=== PATIENT | female | born 1965 | race Caucasian/White ===

== ENCOUNTER 2023-04-30 13:10 | Outpatient (AMB) | payer BC, SELFPAY ==
--- NOTE | 2023-04-30 13:18 | MHC.OFFVIS ---
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 female with past medical history of hypothyroidism, anxiety, depression, obesity is here today for pre colonoscopy screening.? Patient was sent to us by her PCP.? Patient reports to have postprandial abdominal bloating, occasional loose stools than diarrhea. Patient states that she occasionally will have epigastric discomfort with occasional acid reflux, dyspepsia without dysphagia or odynophagia. Patient denies any nausea or vomiting. Patient is not on any anticoagulation medication. No issues with anesthesia in the past. PFSH Surgical History Hx of carpal tunnel repair Social History Household Members: Family Alcohol intake: current Alcohol intake frequency: 0-2 drinks per day Patient Tobacco Use Status: Never used Tobacco Physical Exam Vital Signs: Last Vital Signs Pulse 74 04/30/23 13:27 BP 119/59 L 04/30/23 13:27 BMI result Body Mass Index 33.5 Assessment & Plan Assessment & Plan (1) Postprandial abdominal bloating: Code(s): R14.0 - Abdominal distension (gaseous) Plan: Patient reports postprandial abdominal bloating. Low FODMAP diet discussed with patient. Will send is patient to do lab work to rule out pancreatic insufficiency (2) Postprandial diarrhea: Code(s): K52.9 - Noninfective gastroenteritis and colitis, unspecified Plan: Postprandial loose stools. Patient will start taking Citrucel to have her bulk her stools. Will rule out malabsorption (3) IBS (irritable bowel syndrome): Code(s): K58.9 - Irritable bowel syndrome without diarrhea Qualifiers: Irritable bowel syndrome type: with both diarrhea and constipation Qualified Code(s): K58.2 - Mixed irritable bowel syndrome Plan: Patient most likely has IBS with both diarrhea and constipation. Patient will start taking Citrucel in the morning with full glass of water and take Senokot in the evening. Low FODMAP diet discussed with patient. List of food recommended as well as list of food to avoid given to patient. (4) GERD (gastroesophageal reflux disease): Code(s): K21.9 - Gastro-esophageal reflux disease without esophagitis Qualifiers: Esophagitis presence: esophagitis presence not specified Qualified Code(s): K21.9 - Gastro-esophageal reflux disease without esophagitis Plan: Patient can start lansoprazole in the morning and sucralfate at bedtime. Patient will be sent for upper endoscopy to rule out gastritis, soften tightness, Smith's, gastric or peptic ulcers. (5) Screen for colon cancer: Code(s): Z12.11 - Encounter for screening for malignant neoplasm of colon Plan: Patient denies any issues with anesthesia in the past. Not on any anticoagulation medication. Patient was instructed to stop taking Citrucel for 1 week before the procedure. The importance of good bowel prep discussed with patient. What to expect before during and after the procedure discussed with patient. The importance of clear liquid diet day before the procedure discussed with patient. I will see her after the procedure, sooner on as needed basis. Patient is agreeable to this plan and verbalizes understanding of instructions. She was given the opportunity to ask questions and all questions answered. Thank you for allowing me to participate in her care Orders: Orders Pancreatic Elastase-1 04/30/23 R10.9 - Unspecified abdominal pain Vitamin B12 and Folate 04/30/23 R19.7 - Diarrhea, unspecified Lipase 04/30/23 R10.9 - Unspecified abdominal pain Liver Panel 04/30/23 R10.9 - Unspecified abdominal pain Vitamin D 25-OH (D2 and D3) 04/30/23 E55.9 - Vitamin D deficiency, unspecified Medications: New lansoprazole 30 mg PO DAILY 30 caps 3RF K21.9 - Gastro-esophageal reflux disease without esophagitis sucralfate 1 g PO BEDTIME 30 tabs 4RF R19.7 - Diarrhea, unspecified methylcellulose (laxative) (Citrucel) take it with full glass of water 500 mg PO DAILY 90 tabs 2RF K59.00 - Constipation, unspecified sennosides (Natural Senna Laxative) 8.6 mg PO BEDTIME 90 tabs 3RF constipation K59.00 - Constipation, unspecified bisacodyl (Dulcolax (bisacodyl)) take 2 tabs at noon the day before your colonoscopy 10 mg (2 x 5 mg) PO ONCE 2 tabs 0RF 1 day Z12.11 - Encounter for screening for malignant neoplasm of colon polyethylene glycol 3350 (Miralax) As directed by gastroenterology department at [facility] 238 grams PO ONCE 238 grams 0RF Z12.11 - Encounter for screening for malignant neoplasm of colon Coding Level of Care Code New Pt Level 4 (56281) Diagnoses Postprandial abdominal bloating R14.0 Postprandial diarrhea K52.9 IBS (irritable bowel syndrome) K58.2 Irritable bowel syndrome type: with both diarrhea and constipation GERD (gastroesophageal reflux disease) K21.9 Esophagitis presence: esophagitis presence not specified Screen for colon cancer Z12.11 Time Spent (min) 45 Comment 35 minutes spent with patient and additional 10 minutes spent reviewing her records
[2023-04-30 13:27] VITALS: BP 119/59; PULSE 74; BMI 33.5
== END 2023-04-30 14:34 | disposition home or self-care (01) ==
PROVIDERS: Visit Provider Nurse Practitioner Family
DX: R14.0 Abdominal distension (gaseous) (principal); K58.2 Mixed irritable bowel syndrome; K21.9 Gastro-esophageal reflux disease without esophagitis; Z12.11 Encounter for screening for malignant neoplasm of colon
CPT/HCPCS: 99204

== ENCOUNTER → 2023-04-30 13:10 | Outpatient (BNVA) | payer SELFPAY | PROVIDERS: Visit Provider Nurse Practitioner Family ==

== ENCOUNTER 2023-05-10 11:13 | Outpatient (REF) | payer BC, SELFPAY ==
[2023-05-10 13:53] LABS: Alanine Aminotransferase 46 U/L (0-31); Albumin Level 4.2 g/dL (3.5-5.0); Alkaline Phosphatase 73 U/L (39-117); Aspartate Amino Transferase 20 U/L (5-31); Bilirubin Direct < 0.2 mg/dL (0.0-0.5); Bilirubin Total 0.2 mg/dL (0.0-1.0); Lipase 24 U/L (8-78); Total Protein 7.1 g/dL (6.5-8.0)
[2023-05-10 14:34] LABS: Folate 6.5 ng/mL (> or = 4.0); Vitamin B12 672 pg/mL (200-900)
[2023-05-15 14:58] LABS: Vitamin D 25-OH, D2 <4 ng/mL; Vitamin D 25-OH, D3 25 ng/mL; Vitamin D 25-OH, Total 25 ng/mL (30-100)
== END 2023-05-10 11:14 | disposition home or self-care (01) ==
LOC: HO.HMGCLDS 11:13
PROVIDERS: PCP Internal Medicine; Visit Provider Nurse Practitioner Family
DX: R10.9 Unspecified abdominal pain (principal); E55.9 Vitamin D deficiency, unspecified; R19.7 Diarrhea, unspecified
CPT/HCPCS: 36415; 80076; 82306; 82607; 82746; 83690

== ENCOUNTER 2023-05-13 06:10 | Outpatient (REF) | payer BC, SELFPAY ==
[2023-05-20 03:08] LABS: Pancreatic Elastase-1 487 mcg/g
== END 2023-05-13 06:11 | disposition home or self-care (01) ==
LOC: HO.HMGCLNP 06:10
PROVIDERS: PCP Internal Medicine; Visit Provider Nurse Practitioner Family
DX: R10.9 Unspecified abdominal pain (principal)
CPT/HCPCS: 82656

== ENCOUNTER 2023-06-18 12:08 | Day surgery (SDC) | payer BC, SELFPAY ==
--- NOTE | 2023-06-17 10:22 | P.CONAN_ITS ---
Documented by User: Carlotta Weiner NP 06/17/23 10:23 HPI - Anesthesia Eval Consult details Narrative: 57yo F for Upper Endoscopy and Colonoscopy [facility] Past Medical History Medical History (Updated 06/17/23 @ 08:17 by Romi Bhandari RN) Hypothyroid Migraine Surgical History Surgical History Hx of carpal tunnel repair Social History Social History Household Members: Family Alcohol intake: current Alcohol intake frequency: 0-2 drinks per day Patient Tobacco Use Status: Never used Tobacco Advance Directives: No Advance Directives Information Provided: Yes Meds Allergies Allergy/AdvReac Type Severity Reaction Status Date / Time No Known Allergies Allergy Verified 04/30/23 13:20 Home Medications Medication Instructions Recorded Confirmed Last Taken Type citalopram 20 mg tablet 20 mg PO DAILY 04/30/23 Unknown History galcanezumab-gnlm 120 mg/mL mg subcut 04/30/23 Unknown History subcutaneous syringe (Emgality) levothyroxine 125 mcg tablet 125 mcg PO DAILY 04/30/23 Unknown History riboflavin (vitamin B2) 400 mg 400 mg PO DAILY 04/30/23 Unknown History tablet ropinirole 2 mg tablet 2 mg PO BID 04/30/23 Unknown History topiramate 100 mg capsule,extended 100 mg PO DAILY 04/30/23 Unknown History release 24 hr trazodone 50 mg tablet 50 mg PO DAILY 04/30/23 Unknown History Exam Exam Date and Time: June 17, 2023 102 Assessment and Plan Assessment Anesthesia Assessment: Chart Reviewed Documented by User: Nadeem Salmeron MD 06/18/23 13:08 [facility] Past Medical History Medical History (Updated 06/17/23 @ 08:17 by Romi Bhandari RN) Hypothyroid Migraine Family History Family history of problems with anesthesia: No Surgical History Surgical History Hx of carpal tunnel repair History of Problems with Anesthesia: No Social History Social History Household Members: Family Alcohol intake: current Alcohol intake frequency: 0-2 drinks per day Patient Tobacco Use Status: Never used Tobacco Advance Directives: No Advance Directives Information Provided: Yes Meds Allergies Allergy/AdvReac Type Severity Reaction Status Date / Time No Known Allergies Allergy Verified 04/30/23 13:20 Home Medications Medication Instructions Recorded Confirmed Last Taken Type citalopram 20 mg tablet 20 mg PO DAILY 04/30/23 Unknown History galcanezumab-gnlm 120 mg/mL mg subcut 04/30/23 Unknown History subcutaneous syringe (Emgality) levothyroxine 125 mcg tablet 125 mcg PO DAILY 04/30/23 Unknown History riboflavin (vitamin B2) 400 mg 400 mg PO DAILY 04/30/23 Unknown History tablet ropinirole 2 mg tablet 2 mg PO BID 04/30/23 Unknown History topiramate 100 mg capsule,extended 100 mg PO DAILY 04/30/23 Unknown History release 24 hr trazodone 50 mg tablet 50 mg PO DAILY 04/30/23 Unknown History Exam Airway Mallampati Class: III TM Dist: >3cm Neck ROM: Full Assessment and Plan Assessment Anesthesia Assessment: Anesthesia Plan Discussed Final Anesthetic Review Family History of Problems with Anesthesia: No History of Problems with Anesthesia: No NPO: Yes ASA Class: II Final Preanesthetic Review: No Changes in Pt Med Stat, Meds/Allgs Chart Reviewed, Consent Obtained/Reviewed and Anes Risks/Benef Reviewed Patient Risk: Low Procedure Risk: Low Anesthetic Plan Anesthetic Plan: MAC: Disposition: Standard PACU
[2023-06-18 13:18] VITALS: BP 125/54; PULSE 90; RESP 16; TEMP 36.9; O2SAT 98; BMI 33.8
--- NOTE | 2023-06-18 13:32 | MHC.SHP ---
Pre-Procedural Eval Section A Date of Service: 06/18/23 Section B Chief Complaint: GERD, Constipation Relevant Family History (Specify if Yes): No Relevant Social History: None Present Medications: see Short Stay Collaborative assessment Medical History: Significant History (hypothyroidism, anxiety, depression, obesity) History of Previous Operations: Relevant previous surgery/procedure and date(s) (carpal tunnel ) Allergies: Allergies Allergy/AdvReac Type Severity Reaction Status Date / Time No Known Allergies Allergy Verified 04/30/23 13:20 Review of Systems Sugical H&P ROS: Negative: Constitution, Cardiovascular, Respiratory, Neurological, Psychiatric, Hem-Onc, Allergic/Immunologic, Gastrointestinal, Genitourinary, Musculoskeletal, Integumentary, Endocrine and Eyes/Ears/Nose/Throat Exam Surgical H&P Exam: Normal: HEENT, Normal: Heart, Normal: Lungs, Normal: Extremities, Normal: Abdomen, Normal: Skin and Normal: Neurological Plan Diagnosis/Plan: Unchanged I have reviewed the history and physical and performed a pertinent physical examination on my patient. No changes have occurred unless specified. Time Spent With Patient Time: Total time managing care of this patient today ____ minutes.
--- NOTE | 2023-06-18 14:02 | P.OP_ITS ---
Operative Note Operative Note Date of Service: 06/18/23 Narrative: Operative Information Procedure Description: EGD, Colonoscopy Indication: diarrhea Anesthesia: MAC FLEXIBLE TRANSORAL UPPER GASTROINTESTINAL ENDOSCOPY AND COLONOSCOPY PROCEDURE NOTE UPPER ENDOSCOPY Consent: Indications for the procedure and potential complications of bleeding, perforation, reaction to medications and missed diagnosis were discussed with the patient and informed consent was obtained. Instrument: Olympus GIF H 190 J mid size upper endoscope Monitoring: Vital signs and clinical assessment, continuous EKG monitoring, Pulse oximetry, Carbon Dioxide monitoring and blood pressure monitoring were done throughout the procedure. Procedure: The patient was placed in the left lateral decubitis position and pre-procedure medications were administered and a bite block was placed. The endoscope was inserted into the mouth and advanced under direct vision to the third part of duodenum. A careful inspection was made as the upper endoscope was withdrawn including a retroflexed examination of the proximal stomach; Findings and interventions are described below. Findings: Larynx:normal Esophagus: GE junction at 38 cm, diaphragm hiatus at 38 cm, few small islands of salmon pink tissue, bx taken also from distal and proximal esophagus - schatzki ring noted Stomach: patchy erythematous mucosa. Biopsies were obtained. Grade 2 flap valve on retroflexed examination of the cardia. Duodenum: Normal bulb and descending duodenum, bx taken Intervention: Biopsies as noted above COLONOSCOPY Instrument: Olympus variable stiffness pediatric scope 190L Colonoscopy Monitoring: Vital signs and clinical assessment, continuous EKG monitoring, Pulse oximetry, Carbon Dioxide monitoring and blood pressure monitoring were done throughout the procedure. Colon withdrawal time was 22 minutes. Procedure: The patient was placed in the left lateral decubitis position and pre-procedure medications were administered. After a digital rectal examination of the ano-rectum, the video colonoscope was inserted into the rectum and advanced through the colon to the cecum/TI. The colonoscope was slowly withdrawn in a retrograde panoramic fashion and the colon mucosa was carefully examined including a retroflexed view of the rectum. Findings and interventions are described below. Procedure Difficulty:easy Findings: Terminal Ileum-normal, bx taken Random colon bx taken Cecum:normal Retroflexion - 10 mm sessile polyp noted on retroflexion and lifted with eleview then removed with cold snare Ascending Colon: normal Transverse Colon -normal Descending Colon:normal Sigmoid Colon: normal Rectum: Retroflexion with small internal hemorrhoids, grade I, 11-12 mm sessile polyp removed with cold snare and x 2 clips applied for hemostasis Anorectum - normal Colon preparation: [place] Bowel Preparation Scale Right colon; 2 Transverse colon: 3 Left colon; 3 (0 = Unprepared colon segment with mucosa not seen due to solid stool that cannot be cleared. 1 = Portion of mucosa of the colon segment seen, but other areas of the colon segment not well seen due to staining, residual stool and/or opaque liquid. 2 = Minor amount of residual staining, small fragments of stool and/or opaque liquid, but mucosa of colon segment seen well. 3 = Entire mucosa of colon segment seen well with no residual staining, small fragments of stool or opaque liquid) Impression and Post Procedure Diagnosis: Endoscopy Findings: possible barretts schatzki ring gastritis Colonoscopy Findings: polyps internal hemorrhoids diverticular disease Plan: Await Pathology results Repeat Colonoscopy in 3-5 years due to adenomatous polyps or earlier if clinically indicated High fiber diet leaflet avoid straining at stool, epsom salts and sitz bath, anusol supps or cream reflux precautions Above findings were reviewed with the patient and relevant handouts were provided if indicated.
[2023-06-18 14:42] VITALS: BP 106/62; PULSE 99; RESP 16; TEMP 36.1; O2SAT 96
[2023-06-18 14:57] VITALS: BP 107/59; PULSE 88; RESP 16; O2SAT 96
[2023-06-18 15:12] VITALS: BP 122/61; PULSE 87; RESP 16; TEMP 36.1; O2SAT 96
[2023-06-18 16:12] LABS: CDiff Gene PCR NEGATIVE (Negative)
[2023-06-19 14:34] LABS: Campylobacter Not Detected (Not Detect.); Cryptosporidium Not Detected (Not Detect.); E. coli EAEC Not Detected (Not Detect.); E. coli EPEC Not Detected (Not Detect.); E. coli ETEC Not Detected (Not Detect.); E. coli STEC Not Detected (Not Detect.); Plesiomonas shigelloides Not Detected (Not Detect.); Salmonella Not Detected (Not Detect.); Shigella sp./EIEC Not Detected (Not Detect.); Vibrio Not Detected (Not Detect.); Vibrio Cholerae Not Detected (Not Detect.); Yersinia enterocolitica Not Detected (Not Detect.)
[2023-06-19 14:35] LABS: Adenovirus F 40/41 Not Detected (Not Detect.); Astrovirus Not Detected (Not Detect.); Cyclospora cayetanensis Not Detected (Not Detect.); Entamoeba histolytica Not Detected (Not Detect.); Giardia lamblia Not Detected (Not Detect.); Norovirus GI/GII Not Detected (Not Detect.); Rotavirus A Not Detected (Not Detect.); Sapovirus Not Detected (Not Detect.)
== END 2023-06-18 15:46 | disposition home or self-care (01) ==
PROVIDERS: PCP Internal Medicine; Visit Provider Internal Medicine Gastroenterology
PROC: (CPT 45385; principal; 2023-06-18 13:50)
DX: Z12.11 Encounter for screening for malignant neoplasm of colon (principal); D12.8 Benign neoplasm of rectum; K63.5 Polyp of colon; K64.0 First degree hemorrhoids; K58.2 Mixed irritable bowel syndrome; K21.9 Gastro-esophageal reflux disease without esophagitis; K29.50 Unspecified chronic gastritis without bleeding; K22.70 Barrett's esophagus without dysplasia; K22.2 Esophageal obstruction; K44.9 Diaphragmatic hernia without obstruction or gangrene; E03.9 Hypothyroidism, unspecified; E66.9 Obesity, unspecified; Z68.33 Body mass index [BMI] 33.0-33.9, adult; F41.1 Generalized anxiety disorder; F32.A Depression, unspecified; Z79.899 Other long term (current) drug therapy
CPT/HCPCS: 45385; 45380; 45381; 43239; 87493; 87507; 88305; 88342; J2250

== ENCOUNTER → 2023-06-18 12:08 | Outpatient (BNV) | payer BC, SELFPAY | PROVIDERS: PCP Internal Medicine; Visit Provider Internal Medicine Gastroenterology | DX: K21.9 Gastro-esophageal reflux disease without esophagitis (principal); R19.7 Diarrhea, unspecified; K22.2 Esophageal obstruction; K29.00 Acute gastritis without bleeding; D12.0 Benign neoplasm of cecum; D12.8 Benign neoplasm of rectum; K64.0 First degree hemorrhoids | CPT/HCPCS: 43239; 45385 ==

== ENCOUNTER 2023-07-02 10:36 | Outpatient (AMB) | payer BC, SELFPAY ==
--- NOTE | 2023-07-02 10:43 | MHC.OFFVIS ---
Intake Vital Signs 07/02/23 10:48 Height 4 ft 9 in Weight 160 lb 0.889 oz BMI 34.6 BP 132/84 Pulse Oximetry (%) 98 Intake Visit Reasons: s/p egd/colon- [place] Intake Note: Patient here for a follow up results for endoscopy and colonoscopy Allergies No Known Allergies Allergy (Verified 04/30/23 13:20) HPI s/p egd/colon- [place] HPI Details LAST VISIT Postprandial abdominal bloating Patient reports postprandial abdominal bloating. Low FODMAP diet discussed with patient. Will send is patient to do lab work to rule out pancreatic insufficiency Postprandial diarrhea Postprandial loose stools. Patient will start taking Citrucel to have her bulk her stools. Will rule out malabsorption IBS (irritable bowel syndrome) Patient most likely has IBS with both diarrhea and constipation. Patient will start taking Citrucel in the morning with full glass of water and take Senokot in the evening. Low FODMAP diet discussed with patient. List of food recommended as well as list of food to avoid given to patient. GERD (gastroesophageal reflux disease) Patient can start lansoprazole in the morning and sucralfate at bedtime. Patient will be sent for upper endoscopy to rule out gastritis, soften tightness, Smith's, gastric or peptic ulcers. Screen for colon cancer Patient denies any issues with anesthesia in the past. Not on any anticoagulation medication. Patient was instructed to stop taking Citrucel for 1 week before the procedure. The importance of good bowel prep discussed with patient. What to expect before during and after the procedure discussed with patient. The importance of clear liquid diet day before the procedure discussed with patient. I will see her after the procedure, sooner on as needed basis. Patient is agreeable to this plan and verbalizes understanding of instructions. She was given the opportunity to ask questions and all questions answered. UPPER ENDOSCOPY AND COLONOSCOPY Findings: Larynx:normal Esophagus: GE junction at 38 cm, diaphragm hiatus at 38 cm, few small islands of salmon pink tissue, bx taken also from distal and proximal esophagus -schatzki ring noted Stomach: patchy erythematous mucosa. Biopsies were obtained. Grade 2 flap valve on retroflexed examination of the cardia. Duodenum: Normal bulb and descending duodenum, bx taken Intervention: Biopsies as noted above Findings: Terminal Ileum-normal, bx taken Random colon bx taken Cecum:normal Retroflexion - 10 mm sessile polyp noted on retroflexion and lifted with eleview then removed with cold snare Ascending Colon: normal Transverse Colon -normal Descending Colon:normal Sigmoid Colon: normal Rectum: Retroflexion with small internal hemorrhoids, grade I, 11-12 mm sessile polyp removed with cold snare and x 2 clips applied for hemostasis Anorectum - normal Colon preparation: [place] Bowel Preparation Scale Right colon; 2 Transverse colon: 3 Left colon; 3 (0 = Unprepared colon segment with mucosa not seen due to solid stool that cannot be cleared. 1 = Portion of mucosa of the colon segment seen, but other areas of the colon segment not well seen due to staining, residual stool and/or opaque liquid. 2 = Minor amount of residual staining, small fragments of stool and/or opaque liquid, but mucosa of colon segment seen well. 3 = Entire mucosa of colon segment seen well with no residual staining, small fragments of stool or opaque liquid) Impression and Post Procedure Diagnosis: Endoscopy Findings: possible barretts schatzki ring gastritis Colonoscopy Findings: polyps internal hemorrhoids diverticular disease Plan: Await Pathology results Repeat Colonoscopy in 3-5 years due to adenomatous polyps or earlier if clinically indicated High fiber diet leaflet avoid straining at stool, epsom salts and sitz bath, anusol supps or cream reflux precautions PATHOLOGY RESULTS Diagnosis A. Duodenum, biopsy: Duodenal mucosa within normal limits. B. Stomach, biopsy: Antral-type and oxyntic mucosa within normal limits; no Helicobacter organisms seen. C. GE junction, biopsy: - Cardiofundic-type mucosa with mild chronic inactive inflammation; no intestinal metaplasia seen. - Squamous mucosa within normal limits. D. Esophagus, distal, biopsy: Squamous epithelium within normal limits; no inflammation seen. E. Esophagus, proximal, biopsy: Squamous epithelium within normal limits; no inflammation seen. F. Terminal ileum, biopsy: Terminal ileal mucosa within normal limits. G. Colon, ascending, polypectomy: Colonic mucosa with mild surface hyperplastic changes and small lymphoid aggregate. H. Colon, random, biopsy: Colonic mucosa within normal limits. I. Rectum, polypectomy: Fragments of tubular adenoma; negative for high-grade dysplasia or carcinoma. Today's visit Patient is here today for follow-up and to discuss colonoscopy and upper endoscopy results as mentioned above all results discussed with patient. Patient was found to have a tubular adenoma in hemorrhoids on colonoscopy. Upper endoscopy showed mild gastritis, no esophagitis. However biopsy showed mild chronic inflammatory changes in GE junction. No H pylori found. Patient reports that she is feeling well denies any ill effects from the prep, anesthesia or procedure itself. Patient will need to report for colorectal screening in 3-5 years, sooner if symptomatic. Patient reports that she is not moving her bowels well. Takes senna and reports that she continues to feel like she does not empty her bowels completely. Patient is taking Nexium and states that her symptoms of acid reflux are suppressed. [facility] Medical History (Updated 06/17/23 @ 08:17 by Romi Bhandari RN) Hypothyroid Migraine Surgical History Hx of carpal tunnel repair Social History Household Members: Family Alcohol intake: current Alcohol intake frequency: 0-2 drinks per day Patient Tobacco Use Status: Never used Tobacco Review of Systems Const Denies weight gain and Denies weight loss ENT Reports no additional complaints, Denies dysphagia and Denies odynophagia Card Reports no additional complaints Resp Reports no additional complaints GI Denies abdominal pain, Denies belching, Denies melena, Reports bloating, Denies change in bowel habits, Reports constipation, Denies dysphagia, Denies excessive flatus, Denies dyspepsia, Denies heartburn, Denies diarrhea, Reports loose stools, Denies nausea, Denies odynophagia and Denies vomiting Reports no additional complaints Musc Reports no additional complaints Neuro Reports no additional complaints Psych Reports no additional complaints Endo Reports no additional complaints Physical Exam Vital Signs: Last Vital Signs BP 132/84 07/02/23 10:48 Pulse Ox 98 07/02/23 10:48 BMI result Body Mass Index 34.6 Const General: healthy appearing, no acute distress and well developed Nutritional Appearance: obese Orientation/consciousness: patient oriented x3 HEENT Head: Yes normal to inspection, Yes normocephalic and Yes atraumatic Face and sinus: Yes normal facial exam Mouth: Normal oral and palatal mucosa present Throat: Yes posterior oropharynx normal, Yes tonsils normal and Yes uvula midline Eyes General: appearance normal, both eyes and all related structures Neck Neck: Yes normal visual inspection, Yes full ROM and Yes trachea midline Thyroid: Thyroid normal Resp Effort & Inspection: normal respiratory effort, able to speak in complete sentences, no tracheal deviation and symmetric chest movement Auscultation: clear to auscultation bilaterally Cardio Rate: regular rate Heart sounds: S1 normal heart sound present and S2 normal heart sound present GI Inspection: Yes normal to inspection, No distended and Yes obesity Palpation (GI): Soft to palpation, not firm, nontender and No hepatosplenomegaly present Auscultation: normal bowel sounds General: Yes no CVA tenderness Back/Spine/Pelvis Back: no CVA tenderness Skin General skin exam: elasticity normal, turgor normal and dry skin Neuro General: patient oriented x3 Psych Appearance: grossly normal Mental Status: mental status grossly normal Speech and movement: Normal speech and movement present Assessment & Plan Assessment & Plan (1) Postprandial abdominal bloating: Code(s): R14.0 - Abdominal distension (gaseous) (2) Postprandial diarrhea: Code(s): K52.9 - Noninfective gastroenteritis and colitis, unspecified (3) IBS (irritable bowel syndrome): Code(s): K58.9 - Irritable bowel syndrome without diarrhea Qualifiers: Irritable bowel syndrome type: with both diarrhea and constipation Qualified Code(s): K58.2 - Mixed irritable bowel syndrome (4) GERD (gastroesophageal reflux disease): Code(s): K21.9 - Gastro-esophageal reflux disease without esophagitis Qualifiers: Esophagitis presence: without esophagitis Qualified Code(s): K21.9 - Gastro-esophageal reflux disease without esophagitis Plan Patient continues to be constipated will send her script for Linzess. Patient will call the office if she will have do much diarrhea. Tubular adenoma found on upper endoscopy and patient will need to repeat colonoscopy in 3 years, sooner if clinically necessary. Discussed with patient avoiding dietary triggers late night snacking. Staying upright for minimal 3 hours after meals discussed with patient. Patient can continue Nexium every morning. Patient can take sucralfate at bedtime. I will see patient in 6 months, sooner on as needed basis. Patient is agreeable to this plan and verbalizes understanding of instructions. She was given the opportunity to ask questions and all questions answered. Thank you for allowing me to participate in her care Medications: New linaclotide (Linzess) 145 mcg PO DAILY 30 caps 2RF Discontinued methylcellulose (laxative) take it with full glass of water Discontinued Reason: Doctor's Order 500 mg PO DAILY 90 tabs 2RF K59.00 - Constipation, unspecified sennosides Discontinued Reason: Doctor's Order 8.6 mg PO BEDTIME 90 tabs 3RF constipation K59.00 - Constipation, unspecified bisacodyl take 2 tabs at noon the day before your colonoscopy Discontinued Reason: Doctor's Order 10 mg (2 x 5 mg) PO ONCE 1 day 2 tabs 0RF Z12.11 - Encounter for screening for malignant neoplasm of colon polyethylene glycol 3350 As directed by gastroenterology department at [facility] Discontinued Reason: Doctor's Order 238 grams PO ONCE 238 grams 0RF Z12.11 - Encounter for screening for malignant neoplasm of colon Coding Level of Care Code Est Pt Level 4 (02775) Diagnoses Postprandial abdominal bloating R14.0 Postprandial diarrhea K52.9 Irritable bowel syndrome with both constipation and diarrhea K58.2 Irritable bowel syndrome type: with both diarrhea and constipation Gastroesophageal reflux disease without esophagitis K21.9 Esophagitis presence: without esophagitis Time Spent (min) 35 Comment 20 minutes spent with patient and additional 15 minutes spent reviewing her records
[2023-07-02 10:48] VITALS: BP 132/84; O2SAT 98; BMI 34.6
== END 2023-07-02 11:38 | disposition home or self-care (01) ==
PROVIDERS: PCP Internal Medicine; Visit Provider Nurse Practitioner Family
DX: K58.2 Mixed irritable bowel syndrome (principal); K21.9 Gastro-esophageal reflux disease without esophagitis; R14.0 Abdominal distension (gaseous)
CPT/HCPCS: 99214

== ENCOUNTER → 2023-07-02 10:36 | Outpatient (BNVA) | payer BC, SELFPAY | PROVIDERS: PCP Internal Medicine; Visit Provider Nurse Practitioner Family ==

== ENCOUNTER 2023-12-31 10:55 | Outpatient (AMB) | payer BC, SELFPAY ==
--- NOTE | 2023-12-31 11:15 | A.OFFVIS_ITS ---
Intake Intake Visit Reasons: 6 month follow up Intake Note: Amanda presents in the office as a 6 month follow up. CC: She states that she might be lactose intolerant. Allergies No Known Allergies Allergy (Verified 12/31/23 11:18) HPI HPI Comments History of Present Illness Details 58 y.o F with PMH of GERD, Schatzki's ri ng, hypothyroidism, who is presenting for follow-up after upper endoscopy. Sees Roberta Wahl. Currently no acute GI complaints. Does not report any significant heartburn, difficulty swallowing, painful swallowing. Symptoms are controlled on esomeprazole as long as she continues to take it every day. Gets rebound heartburn if she inadvertently skips a dose. Patient also wonders if she has lactose intolerance, as notices heartburn in bloating gets aggravated when she consumes dairy. Has been taking [id number] Lactaid supplements. PFSH Medical History Hypothyroid Migraine Surgical History (Updated 12/31/23 @ 11:18 by YI Ornelas) Hx of colonoscopy History of esophagogastroduodenoscopy (EGD) Hx of carpal tunnel repair Social History Household Members: Family Alcohol intake: current Alcohol intake frequency: 0-2 drinks per day Patient Tobacco Use Status: Never used Tobacco Review of Systems Const All systems reviewed & are unremarkable except as noted in HPI and below Physical Exam Vital Signs: Gen appear: No acute distress HEENT: no icterus Chest: No overt resp distress Abd: soft, nontender, nondistended Psych: Stable affect, answering questions appropriately Neuro: A/Ox3 noted to move all extremities spontaneously Ext: no peripheral edema Assessment & Plan Assessment & Plan (1) GERD (gastroesophageal reflux disease): Code(s): K21.9 - Gastro-esophageal reflux disease without esophagitis (2) Postprandial abdominal bloating: Code(s): R14.0 - Abdominal distension (gaseous) Plan Good control of her GI symptoms. Reviewed with the patient that based on upper endoscopy from last year, no endoscopic or histological evidence of reflux disease. Would recommend slowly tapering the dose of and monitoring response. Quite plausible that may have functional dyspepsia however would not recommend long-term use of high-dose Nexium (has already been on Nexium 40 mg for years). In terms of question of lactose intolerance, reviewed with the patient that agree with avoiding it if it bothers her. No harm in taking Lactaid as needed. Plan: -avoid trigger foods -decrease Nexium to 20 mg once daily. Advised to decrease slowly over the next few weeks to avoid rebound heartburn. \ -eventual goal to taper to minimum effective dose. If unable to taper may need Hill study. -Avoid dairy. Can consider food allergen testing however also ok to cont to take lactaid as needed. Follow up back with Roberta Wahl in 6 months Medications: New esomeprazole magnesium (Nexium) 20 mg PO DAILY 90 caps 0RF Coding Level of Care Code Est Pt Level 4 (19302) Diagnoses GERD (gastroesophageal reflux disease) K21.9 Postprandial abdominal bloating R14.0
== END 2023-12-31 12:21 | disposition home or self-care (01) ==
PROVIDERS: PCP Internal Medicine; Visit Provider Internal Medicine
DX: K21.9 Gastro-esophageal reflux disease without esophagitis (principal); R14.0 Abdominal distension (gaseous)
CPT/HCPCS: 99214

== ENCOUNTER → 2023-12-31 10:55 | Outpatient (BNVA) | payer BC, SELFPAY | PROVIDERS: PCP Internal Medicine; Visit Provider Internal Medicine ==

== ENCOUNTER 2024-01-10 13:00 | Outpatient (REF) | payer BC, SELFPAY ==
[2024-01-10 16:28] LABS: CDiff Gene PCR NEGATIVE (Negative)
[2024-01-11 15:34] LABS: Adenovirus F 40/41 Not Detected (Not Detect.); Astrovirus Not Detected (Not Detect.); Campylobacter Not Detected (Not Detect.); Cryptosporidium Not Detected (Not Detect.); Cyclospora cayetanensis Not Detected (Not Detect.); E. coli EAEC Not Detected (Not Detect.); E. coli EPEC Not Detected (Not Detect.); E. coli ETEC Not Detected (Not Detect.); E. coli STEC Not Detected (Not Detect.); Entamoeba histolytica Not Detected (Not Detect.); Giardia lamblia Not Detected (Not Detect.); Plesiomonas shigelloides Not Detected (Not Detect.); Rotavirus A Not Detected (Not Detect.); Salmonella Not Detected (Not Detect.); Sapovirus Not Detected (Not Detect.); Shigella sp./EIEC Not Detected (Not Detect.); Vibrio Not Detected (Not Detect.); Vibrio Cholerae Not Detected (Not Detect.); Yersinia enterocolitica Not Detected (Not Detect.)
== END 2024-01-10 13:01 | disposition home or self-care (01) ==
LOC: HO.HMGCLNP 13:00
PROVIDERS: PCP Internal Medicine; Visit Provider Nurse Practitioner Family
DX: R19.7 Diarrhea, unspecified (principal)
CPT/HCPCS: 87493; 87507

== ENCOUNTER 2024-02-16 09:59 | Outpatient (REF) | payer BC, SELFPAY ==
--- NOTE | ~2024-02-16 | US_ITS ---
EXAMINATION: US ABDOMEN COMPLETE CLINICAL INFORMATION: Abdominal pain. COMPARISON: None available. TECHNIQUE: Real-time imaging of the abdominal viscera. FINDINGS: PANCREAS: Normal. ABDOMINAL AORTA: The proximal, mid, and distal segments are normal in caliber. INFERIOR VENA CAVA: Visualized portions are normal. LIVER: Normal. The liver is normal in size. The liver contour is normal. Echogenic liver. Hypoechoic area adjacent to the gallbladder probably representing focal fatty sparing. No focal hepatic lesion. There is no intrahepatic biliary duct dilatation seen. GALLBLADDER: The gallbladder is physiologically distended without evidence of stones, sludge, polyps, wall thickening or pericholecystic fluid. COMMON BILE DUCT: Normal in caliber measuring 0.4 cm in diameter. RIGHT KIDNEY: Normal. No hydronephrosis. No renal calculi or focal parenchymal lesions. The kidney measures 10 cm in maximum dimension. LEFT KIDNEY: Normal. No hydronephrosis. No renal calculi or focal parenchymal lesions. The kidney measures 10.5 cm in maximum dimension. SPLEEN: Normal. The spleen measures 9.5 cm in maximum dimension. FREE FLUID: None. US/US abdomen complete IMPRESSION: Echogenic liver probably representing fatty infiltration. Otherwise unremarkable exam.
== END 2024-02-16 10:00 | disposition home or self-care (01) ==
LOC: HO.HMGCX 09:59
PROVIDERS: PCP Internal Medicine; Visit Provider Nurse Practitioner Family
DX: R10.11 Right upper quadrant pain (principal)
CPT/HCPCS: 76700

== ENCOUNTER → 2024-02-26 07:57 | Outpatient (REF) | payer BC, SELFPAY ==
--- NOTE | ~2024-02-26 | NM_ITS ---
EXAMINATION: BILIARY TRACT IMAGING STUDY WITH CCK CLINICAL INFORMATION: Right upper quadrant abdominal pain.. COMPARISON: Abdominal ultrasound done on 02/16/2024.. TECHNIQUE: Serial gamma scintillation camera images were obtained over the abdomen for a total observation period of 60 minutes following the intravenous administration of 5.0 mCi Tc-99m mebrofenin. FINDINGS: There is good concentration of activity in the liver by 5 minutes post injection. Biliary activity is visualized by 10 minutes. The gallbladder is well visualized by 15 minutes. Small bowel is well visualized by 70 minutes. At 60 minutes post radiopharmaceutical injection, a 30-minute infusion of 1.36 micrograms Sincalide was then begun and an additional 40 minutes of images were obtained. There is good emptying of the gallbladder. By the end of the study there is good clearance of activity from the liver and visualization of diffuse small bowel activity. The calculated gallbladder ejection fraction is 79% (normal gallbladder ejection fraction is greater than 35%). NM/NM hepatobiliary w pharm IMPRESSION: Visualization of the gallbladder is evidence of a patent cystic duct and strong evidence against the diagnosis of acute cholecystitis. The common bile duct is patent. Gallbladder emptying and ejection fraction are normal. Liver function appears normal.
== END ==
LOC: HO.NUCMED 07:57
PROVIDERS: PCP Internal Medicine; Visit Provider Nurse Practitioner Family
DX: R10.11 Right upper quadrant pain (principal)
CPT/HCPCS: 78227; A9537; J2805

== ENCOUNTER 2024-07-30 12:27 | Outpatient (AMB) | payer BC, SELFPAY ==
--- NOTE | 2024-07-30 12:28 | MHC.OFFVIS ---
Vital Signs 07/30/24 12:30 Height 4 ft 9 in Weight 151 lb 10.848 oz BMI 32.8 BP 122/78 Blood Pressure Location Rt brachial Position Sitting Pulse 64 Pulse Source Pulse Oximeter Pulse Oximetry (%) 97 Oxygen Delivery Method Room Air Intake Visit Reasons: 6 mos FUV. R/S x1 Intake Note: Relevant Flags or Indicators ? Requires Golf Sales Manager? N Amanda presents in office today for a scheduled FUV CC; Since last visit; labs ordered ? done. Rx ordered ? no. Diagnostics/images ordered ? done. Relevant GI Sx as reported per pt? Nausea ? Reflux ? Fecal abnormalities o?? Diarrhea, very rarely. More often having soft/less formed stools. ? Early satiety ? Bloating ? Abdominal distention ? Hx of any recent surgeries? None Golf Sales Manager Required: No Allergies No Known Allergies Allergy (Verified 07/30/24 12:31) HPI HPI 6 mos FUV. R/S x1: Details: LAST VISIT: Postprandial abdominal bloating Postprandial diarrhea IBS (irritable bowel syndrome) GERD (gastroesophageal reflux disease) Plan Patient continues to be constipated will send her script for Linzess. Patient will call the office if she will have do much diarrhea. Tubular adenoma found on upper endoscopy and patient will need to repeat colonoscopy in 3 years, sooner if clinically necessary. Discussed with patient avoiding dietary triggers late night snacking. Staying upright for minimal 3 hours after meals discussed with patient. Patient can continue Nexium every morning. Patient can take sucralfate at bedtime. I will see patient in 6 months, sooner on as needed basis. Patient is agreeable to this plan and verbalizes understanding of instructions. She was given the opportunity to ask questions and all questions answered. ? TODAY'S VISIT Patient is here today for follow-up. Patient reports that she continues to have postprandial abdominal bloating, feeling full early. Her symptoms are worse towards the end of the day. Patient does well with breakfast. Usually she has nutrition bar for breakfast. As she goes through the day she is feeling more bloated and full. Dinner time is the worse for her. Patient reports that she has severe bloating and unable sometimes to finish her food. Patient tries to cook home cooked meals and it is not eating out. Eating fairly healthy. Patient no longer is taking Linzess. States that she will have soft bowel movements couple bowel movements a day. Not sure if she really feels like she empties her bowels completely. Patient reports occasional nausea without vomiting. Patient denies dyspepsia, dysphagia or odynophagia. Denies melena, hematochezia, unintentional weight loss or ribbon like stools. Last chemistry liver enzymes ALT elevated to 46, normal ALT. Patient had abdominal ultrasound last year in February that showed increased echogenicity of the liver suggesting fatty liver. HIDA scan showed normal functioning gallbladder without any blockage. Patient denies having pain in the right upper quadrant since last visit. Patient reports that pain mainly in the middle of her abdomen and sometimes in epigastric area. Patient reports that Nexium is working for her for the most part. While on Nexium patient is trying to avoid dietary triggers and if she does her symptoms are suppressed. [facility] Medical History Hypothyroid Migraine Surgical History Hx of colonoscopy History of esophagogastroduodenoscopy (EGD) Hx of carpal tunnel repair Social History Household Members: Family Alcohol intake: current Alcohol intake frequency: 0-2 drinks per day Patient Tobacco Use Status: Never used Tobacco Review of Systems Const Denies weight gain and Denies weight loss ENT Reports no additional complaints, Denies dysphagia and Denies odynophagia Card Reports no additional complaints Resp Reports no additional complaints GI Reports abdominal pain, Denies belching, Denies melena, Reports bloating, Denies change in bowel habits, Reports constipation, Denies dysphagia, Denies excessive flatus, Reports early satiety, Denies dyspepsia, Denies heartburn, Denies diarrhea, Denies loose stools, Denies nausea, Denies odynophagia and Denies vomiting Reports no additional complaints Musc Reports no additional complaints Neuro Reports no additional complaints Psych Reports no additional complaints Endo Reports no additional complaints Physical Exam Vital Signs: Last Vital Signs Pulse 64 07/30/24 12:30 BP 122/78 07/30/24 12:30 Pulse Ox 97 07/30/24 12:30 Oxygen Delivery Method Room Air 07/30/24 12:30 BMI result Body Mass Index 32.8 Const General: healthy appearing and no acute distress Nutritional Appearance: obese Orientation/consciousness: patient oriented x3 Resp Effort & Inspection: normal respiratory effort, able to speak in complete sentences, no tracheal deviation and symmetric chest movement Auscultation: clear to auscultation bilaterally Cardio Rate: regular rate GI Inspection: Yes normal to inspection, No distended and Yes obesity Palpation (GI): Soft to palpation, not firm, nontender and No hepatosplenomegaly present Auscultation: normal bowel sounds General: Yes no CVA tenderness Back/Spine/Pelvis Back: no CVA tenderness Skin General skin exam: elasticity normal, turgor normal and dry skin Neuro General: patient oriented x3 Psych Appearance: grossly normal Mental Status: mental status grossly normal Assessment & Plan Assessment & Plan (1) GERD (gastroesophageal reflux disease): Code(s): K21.9 - Gastro-esophageal reflux disease without esophagitis Qualifiers: Esophagitis presence: without esophagitis Qualified Code(s): K21.9 - Gastro-esophageal reflux disease without esophagitis (2) Postprandial abdominal bloating: Code(s): R14.0 - Abdominal distension (gaseous) (3) Postprandial diarrhea: Code(s): K52.9 - Noninfective gastroenteritis and colitis, unspecified (4) IBS (irritable bowel syndrome): Code(s): K58.9 - Irritable bowel syndrome, unspecified Qualifiers: Irritable bowel syndrome type: with both diarrhea and constipation Qualified Code(s): K58.2 - Mixed irritable bowel syndrome (5) Constipation: Code(s): K59.00 - Constipation, unspecified Qualifiers: Constipation type: slow transit constipation Qualified Code(s): K59.01 - Slow transit constipation Plan Will recheck liver panel today. Patient will start taking Dulcolax before or after dinner daily. Patient will also purchased edxz-luu-[id number] fiber supplement with probiotics. Avoid dietary triggers and late night snacking. Continue Nexium daily. Patient reports epigastric pain pain in the middle of her abdomen at times will check lipase as well. Will check thyroid levels as well. Patient will call our office if she will continue to have symptoms. Long discussion about dietary changes. Will repeat liver ultrasound next visit. If patient will continue to have high liver function studies we will add additional testing before patient will be seen in the office. Patient will return to the office in 6 months, sooner on as needed basis. She is agreeable to this plan and verbalizes understanding of instructions. She was given the opportunity to ask questions and all questions answered. Thank you for allowing me to participate in her care Orders: Orders Liver Panel Today R74.01 - Elevation of levels of liver transaminase levels TSH reflex Free T4 Today K59.00 - Constipation, unspecified Lipase Today R10.9 - Unspecified abdominal pain Medications: New bisacodyl (Dulcolax (bisacodyl)) 10 mg (2 x 5 mg) PO BEDTIME 180 tabs 4RF Coding Level of Care Code Est Pt Level 4 (67515) Diagnoses Gastroesophageal reflux disease without esophagitis K21.9 Esophagitis presence: without esophagitis Postprandial abdominal bloating R14.0 Postprandial diarrhea K52.9 Irritable bowel syndrome with both constipation and diarrhea K58.2 Irritable bowel syndrome type: with both diarrhea and constipation Slow transit constipation K59.01 Constipation type: slow transit constipation Time Spent (min) 35 Comment 25 minutes spent with patient and additional 10 minutes spent reviewing her records
[2024-07-30 12:30] VITALS: BP 122/78; PULSE 64; O2SAT 97; BMI 32.8
== END 2024-07-30 13:15 | disposition home or self-care (01) ==
PROVIDERS: PCP Internal Medicine; Visit Provider Nurse Practitioner Family
DX: K21.9 Gastro-esophageal reflux disease without esophagitis (principal); R14.0 Abdominal distension (gaseous); K58.2 Mixed irritable bowel syndrome
CPT/HCPCS: 99214

== ENCOUNTER → 2024-07-30 12:27 | Outpatient (BNVA) | payer BC, SELFPAY | PROVIDERS: PCP Internal Medicine; Visit Provider Nurse Practitioner Family ==

== ENCOUNTER 2025-06-15 09:08 | Outpatient (AMB) | payer BC, SELFPAY ==
--- NOTE | 2025-06-15 10:14 | A.OFFVIS_ITS ---
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 Allergies No Known Allergies Allergy (Verified 06/15/25 10:14) Medication List - Last Reconciled 06/15/25 by Joseph Snow MD black cohosh 200 mg PO DAILY escitalopram oxalate 20 mg PO DAILY esomeprazole magnesium (Nexium) 20 mg PO DAILY estradiol 0.01%(0.1mg/gram) vaginal famotidine (Acid Engineering Program Analyst (famotidine)) 20 mg PO DAILY gabapentin 300 mg PO DAILY galcanezumab-gnlm (Emgality Pen) mg subcut levothyroxine 112 mcg PO DAILY magnesium 250 mg PO DAILY montelukast 10 mg PO DAILY riboflavin (vitamin B2) 400 mg PO DAILY sumatriptan succinate take 1 tab at onset of headache; if no relief, may repeat 1 tab after at least 2 hrs; max = 2 tabs/24 hrs PO topiramate 100 mg PO DAILY trazodone 50 mg PO DAILY apfi-raex-dvp-gya-ybs-yrse-hor [id number] mg tabs PO vibegron (Gemtesa) 75 mg PO DAILY HPI HPI 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: Details: Start time: 10.05am, End time: 10.57am ?I spent 47 minutes speaking with the patient on the phone plus an additional 5 minutes reviewing and updating records for a total of 52 minutes HPI Comments Details: Previous weight loss efforts: WW, exercise Wakes up: 9am, Sleeps: 12am Breakfast: 9am ([employer] protein bar) Lunch: 12pm ([employer] bar) Dinner: 7pm (pizza, chicken, starch, vegetable) Snacks: 3-4pm (ham and cheese), 9pm (cookies, ice cream, crackers) Exercise: has home stationary bike Beverages: Coffee: none, Hot tea (1 cup/d with milk), Soda: diet Gingerale, Juice: none, ETOH: none PFSH Medical History (Updated 06/15/25 @ 10:50 by Joseph Snow MD) Insomnia DJD (degenerative joint disease) Restless leg syndrome GERD (gastroesophageal reflux disease) Sleep apnea treated with continuous positive airway pressure (CPAP) BMI 33.0-33.9,adult Obesity Hypothyroid Migraine Surgical History Hx of colonoscopy History of esophagogastroduodenoscopy (EGD) Hx of carpal tunnel repair Family History (Updated 03/25/25 @ 10:12 by Michelle Hyde CMA) Mother No problems noted. Father No problems noted. Social History Household Members: Family Alcohol intake: current Alcohol intake frequency: 0-2 drinks per day Patient Tobacco Use Status: Never used Tobacco Telehealth Telehealth Telehealth Platform: Telephone Location of provider rendering services: practice address Location of patient: address on file Patient Identification confirmed using: Name, : Yes Telehealth method: voice only Patient verbally consented to treatment: Yes Patient verbally consented to billing insurance company: Yes Patient informed of any privacy concerns related to visit: Yes Minutes spent on Phone/Video with Pt.: 52 Assessment & Plan Assessment & Plan (1) Obesity: Code(s): E66.9 - Obesity, unspecified Category: Medical Qualifiers: Obesity type: due to excess calories Obesity classification: adult class 1 (BMI 30 - 34.9) Serious obesity comorbidity presence: with serious comorbidity Body mass index: BMI 33.0-33.9 Qualified Code(s): E66.811 - Obesity, class 1; E66.09 - Other obesity due to excess calories; Z68.33 - Body mass index [BMI] 33.0-33.9, adult Plan: 1.?Nutritional counseling. Start with one premade PREMIER protein (buy at [employer] or [employer]) shake (mix 4oz of Premier mixed with 4oz low fat unsweetened almond milk each) at 10am-12pm, one [employer] protein bar at 1pm-3pm, another premade PREMIER protein shake (mix 4oz of Premier mixed with 4oz low fat unsweetened almond milk each) at 4pm-6pm, dinner at 7pm (6 forks of protein and 6 forks of salad/vegetables) and one more premade PREMIER protein shake (mix 4oz of Premier mixed with 4oz low fat unsweetened almond milk each) at 9pm-11pm. So you do 2 protein shakes, 2 protein bars and one meal per day. Meal to include lean meat (beef, fish, pork, turkey, chicken), or french yogurt, or egg whites, or beans with a salad with olive oil and fruits (berries, pears, apples, kiwi). Avoid salt, breads, potatoes, rice, pasta, desserts. 3. Each shake would be drunk slowly, like coffee in a period of 2 hours. 4. Cut each bar in 4 pieces and eat each piece in 30min ?to make each bar last 2 hours. 5. I emphasized the importance of measuring accurately the food portion and measure it when serving the food in plate 6. The meal portions include 6 full-size forks of meat and 6 full-size forks of salad. You always eat the meat portion but you can replace up to 3 forks for salad/vegetables with rice, potatoes or pasta, or a fruit ?if you like. The less you do it the better weight loss will be. 7. One full-size fork is what it can be scooped on the fork without falling aside and not what can be bit with the fork. Use regular forks like those you find in a typical restaurant. 8.? Please use the body composition scale, as we discussed, and send me weight measurements as soon as possible and then once a week. Always include your diet and exercise plan. 9. Start stationary bike at a resistance level of 0.0 Increase level by 1.0 every 3 min to a max level of 6.0. Stay at this level for 3 min and then return to level 0.0 and repeat same steps until 300 calories are burned. Goal is to bu rn 2000 calories per week on exercise. You could split it in smaller sessions like 150 calories twice per day, or 100 calories 3 times per day. 10. Alternatively start walking outside daily, tracking calories with a goal of 300 calories per day, daily. Goal is to burn 2000 calories per week on exercise, which means either 300 calories daily, or 400 calories 5 days per week, or 500 calories 4 days per week, or 650 calories 3 days per week. 11. Goal is to lose at least 1.5-2lbs per week 12. Goal to lose at least 10% of your weight, which is about 15lbs. Minimum weight goal: 140lbs 13. Please follow the diet plan exactly without any change. If you don't like something about the plan or you feel hungry you need to communicate with me so I can help you revise the plan. You should not change the plan yourself
[2025-06-15 10:36] VITALS: BMI 33.6
== END 2025-06-15 10:58 | disposition home or self-care (01) ==
LOC: HO.HBS 09:08
PROVIDERS: PCP Internal Medicine; Visit Provider Surgery
DX: E66.811 Obesity, class 1 (principal); Z68.33 Body mass index [BMI] 33.0-33.9, adult
CPT/HCPCS: 99204